=== PATIENT | male | born 1960 | race Caucasian/White ===

== ENCOUNTER → 2017-01-30 | Outpatient (CLI) | payer SELFPAY ==
--- NOTE | 2017-01-31 18:52 | NM ---
EXAMINATION TYPE: NM thyroid image w uptake DATE OF EXAM: 01/31/2017 COMPARISON: Thyroid ultrasound March 02, 2016 HISTORY: Hypothyroidism TECHNIQUE: After the intravenous administration of 11 mCi Tc 99m sodium pertechnetate, thyroid imagin g was performed 15 minutes post injection. Thyroid iodine uptake is calculated after the oral adminis tration of 11 uCi I-131 capsule. FINDINGS: There is homogeneous and normal distribution of activity throughout the gland. There are n o focal findings. The 4 hour iodine uptake is calculated at 8% (normal range 8-14%). The 24-hour iodine uptake is calcu lated at 22% (normal range 15-35%). IMPRESSION: NORMAL THYROID SCAN AND UPTAKE.
== END | disposition home or self-care (01) ==
LOC: RADNMMAIN 10:07
PROVIDERS: ATTEND Family Medicine
DX: E03.9 Hypothyroidism, unspecified (principal); E04.1 Nontoxic single thyroid nodule
CPT/HCPCS: 78014; A9528; A9512